=== PATIENT | male | born 1965 | race Hispanic/Latino ===

== ENCOUNTER → 2025-07-09 | Day surgery (SDC) | payer OTHER ==
[~2025-07-09] MED LIST: AMLODIPINE BESY10 MG PO; ESMOLOL HCL 100MG/10ML 10 MG/ML VIAL ONE; GLUCAGON FOR INJ 1 MG VIAL ONE; HYOSCYAMINE SULFATE 0.5 MG/ML INJ ONE; LIDOCAINE HCL 2% LOCAL INJ 5 ML SDV VIAL INJ ONE; LIPITOR10 MG PO; PROPOFOL IV EMULSION 10 MG/ML 20 ML VIAL ONE
[2025-07-09 11:03] VITALS: TEMP 98
[2025-07-09] MEDS: LACTATED RINGER'S 1,000 ML ONE (11:06)
[2025-07-09 11:30] VITALS: BP 129/90; PULSE 79; RESP 14; O2SAT 96
== END | disposition home or self-care (01) ==
LOC: OR 09:43
PROVIDERS: ATTEND Internal Medicine Gastroenterology
DX: Z12.11 Encounter for screening for malignant neoplasm of colon (principal); D12.5 Benign neoplasm of sigmoid colon; K64.8 Other hemorrhoids; I10 Essential (primary) hypertension; E78.5 Hyperlipidemia, unspecified; I25.2 Old myocardial infarction; R00.1 Bradycardia, unspecified; K21.9 Gastro-esophageal reflux disease without esophagitis; Z01.810 Encounter for preprocedural cardiovascular examination; Z79.899 Other long term (current) drug therapy
CPT/HCPCS: 45385; 93005; J1610; J1980; J2003; J2704; J7121